=== PATIENT | male | born 1950 | race Caucasian/White ===

== ENCOUNTER → 2023-12-09 | Outpatient (CLI) | payer MEDICARE ==
--- NOTE | 2023-12-12 11:07 | MR ---
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 COMPARISON: None TECHNIQUE: Multiplanar multi-sequence imaging was performed without contrast. Post contrast imaging was performed. Post IV contrast subtraction images were also submitted for review. IV Contrast: 8 no any for any Gadavist FINDINGS: LOWER CHEST: No gross irregularity. ABDOMEN Liver: No evidence for hepatic steatosis or cirrhosis. Signal dropout on chemical shift in phase imag ing. Gallbladder and Bile ducts: No evidence for ductal dilation, or biliary stricture or evidence of chol edocholithiasis. The gallbladder is within normal limits. Pancreas: No ductal dilation. No evidence for solid mass. Spleen: Normal for size. Adrenal glands: Unremarkable. Kidneys: Right renal cortical lesion measuring 26 x 20 x 25 mm there is some mild enhancement on post contrast imaging subtraction imaging of this lesion. Additional bilateral high T2 low T1 signal nonenhancing simple appearing cysts measuring up to 16 mm on the right and 12 mm on the left. High T1 signal intrinsic proteinaceous/hemorrhagic cyst measuring 7 mm. Stomach and Bowel: No evidence for bowel wall thickening or evidence for obstruction. Retroperitoneum/Peritoneum: No evidence of pneumoperitoneum or free fluid. Vasculature: No aortic aneurysm. Musculoskeletal: The osseous structures appear intact. Lymph Nodes: No gross evidence for lymphadenopathy. Abdominal wall: Unremarkable. IMPRESSION: 1. Right renal part exophytic lesion which demonstrates hypoenhancement suspicious for hypoenhancing renal cell carcinoma such as chromophobe or papillary subtypes. Urology consultation if not already performed is recommended. 2. Additional bilateral Bosniak type I and type II equivalent cysts. 3. Iron deposition in the liver and spleen. [facility], , 12/12/2023 11:05 AM
== END | disposition home or self-care (01) ==
LOC: RADMRIMAIN 14:24
PROVIDERS: ATTEND Urology
DX: D41.01 Neoplasm of uncertain behavior of right kidney
CPT/HCPCS: 74183